=== PATIENT | female | born 1985 | race Caucasian/White ===

== ENCOUNTER → 2017-10-16 | Outpatient (CLI) | payer BC ==
--- NOTE | 2017-10-16 18:54 | Diagnostic Imaging Report ---
INDICATION: Dysmenorrhea. TECHNIQUE: Multiple real-time grayscale sonographic images were obtained of the pelvis transabdominally and transvaginally. CORRELATION STUDY: None. FINDINGS: UTERUS/ENDOMETRIUM: Uterus measures 7.0 x 4.9 x 4.4 cm. Endometrial thickness is 4 mm. The uterus and endometrium appearing unremarkable. RIGHT OVARY: 3.5 x 3.7 x 1.8 cm. LEFT OVARY: 4.8 x 3.2 x 3.9 cm. Hypoechoic mass most compatible with a left ovarian cyst at 2.3 cm in size. Vascular flow is demonstrated to both ovaries. No significant free pelvic fluid. IMPRESSION: 1. Left ovarian cyst, likely physiologic. Otherwise, unremarkable pelvic ultrasound evaluation. Dictated by: Dictated on workstation # [id number]
== END ==
LOC: RAD 12:30
PROVIDERS: ATTEND Nurse Practitioner Family
DX: N83.202 Unspecified ovarian cyst, left side (principal)
CPT/HCPCS: 76830; 76856